=== PATIENT | male | born 1965 | race Caucasian/White ===

== ENCOUNTER → 2017-11-25 | Outpatient (CLI) | payer OTHER ==
--- NOTE | 2017-11-25 14:45 | XR ---
Right knee HISTORY: Trauma and pain 3 views of the right knee Osteoarthritic changes are present, there is marginal spurring and joint space loss is present especi ally in the medial compartment, patellofemoral joint. Suprapatellar increased density compatible join t effusion noted. Speckled calcification in the proximal fibula is present centrally which may repres ent enchondroma. Small ossific density noted at the level of the tibial spines on the frontal view ma y represent sesamoid bone. Bone mineralization is reduced. Alignment is maintained. Serpiginous soft tissue density along the medial lower extremity likely represents varicose vein. Suspect soft tissue swelling. IMPRESSION: No fracture or dislocation is evident. Additional findings above. Knee MRI may be of bene fit.
== END | disposition home or self-care (01) ==
LOC: RADXRMAIN 14:22
PROVIDERS: ATTEND Emergency Medicine
DX: S83.91XA Sprain of unspecified site of right knee, initial encounter (principal)

== ENCOUNTER → 2017-11-29 | Outpatient (CLI) | payer OTHER ==
--- NOTE | 2017-11-29 16:29 | MR ---
EXAMINATION TYPE: MR knee RT wo con DATE OF EXAM: 11/29/2017 COMPARISON: Radiographs 11/25/2017 HISTORY: 52-year-old male sprained of unspecified site of right knee, slip and fall on ice TECHNIQUE: Multiplanar, multisequence imaging of the right knee is performed without IV contrast. FINDINGS: A well-defined T2 hyperintense lesion within the fibular head measures 1.8 cm AP by 2.1 cm craniocaud al by 1.4 cm wide. There is some stippled internal low signal intensity and along with the radiograph ic appearance, a chondroid lesion is suggested. No cortical erosion or extraosseous component. No henna rounding edema. ACL and PCL are intact. The MCL and LCL complex appear intact though there is mild edema of the popliteal musculature attachi ng to the posterior tibia. There is a focal radial tear of the posterior horn of the meniscus and some inner margin fraying of t he meniscal body. [id number] cartilage irregularity within the medial compartment. Degenerative signal in the posterior horn of the lateral meniscus without discrete meniscal tear. Ove rall lateral compartment articular cartilage volume is maintained. Evaluation of the patellofemoral compartment shows a focal high-grade cartilage fissure along the filiberto tral lateral patellar facet, axial image 21. Overall cartilage volume is maintained. There is a moderate to large knee joint effusion and small developing ganglion cysts at the origin of the bilateral gastrocnemius. Extensor mechanism is intact. Superficial varices. There is focal subchondral curvilinear low signal along the posterolateral lip of the lateral tibial plateau measuring 2.1 cm wide and 1.4 cm AP with associated mild bone marrow edema. The overlying car tilage is edematous. There is deep soft tissue edema suggesting extravasation of joint effusion. Normal popliteal artery anatomy and mild diffuse muscular atrophy. No suspicious bone marrow replacem ent. IMPRESSION: 1. Subchondral impaction fracture (2.1 x 1.4 cm) posterolateral lip of the lateral tibial plateau. No significant articular surface depression. The degree of mild bone marrow edema suggests a more subac [place] injury. Clinically correlate. 2. Incomplete radial tear posterior horn medial meniscus with mild to moderate irregular cartilage lo ss throughout the medial compartment. 3. Focal high-grade cartilage fissure along the lateral patellar facet. 4. Mild muscle strain of the popliteus. 5. Moderate to large knee joint effusion. Deep soft tissue edema suggests some extravasation of joint fluid. 6. An incidental 2.1 cm chondroid lesion, likely enchondroma in the fibular head. If the patient ever develops focal bone pain here, the area can be reimaged.
== END | disposition home or self-care (01) ==
LOC: RADMRIMAIN 06:05
PROVIDERS: ATTEND Emergency Medicine
DX: S82.141A Displaced bicondylar fracture of right tibia, initial encounter for closed fracture (principal); S83.241A Other tear of medial meniscus, current injury, right knee, initial encounter; S86.812A Strain of other muscle(s) and tendon(s) at lower leg level, left leg, initial encounter

== ENCOUNTER → 2023-05-13 | Outpatient (CLI) | payer OTHER ==
--- NOTE | 2023-05-13 08:45 | MR ---
EXAMINATION TYPE: MR lumbar spine wo con DATE OF EXAM: 05/13/2023 7:45 AM COMPARISON: None CLINICAL INDICATION: Male, 57 years old with history of M54.59 low back pain; Low back pain that radi ates down right leg TECHNIQUE: Multi planar, multi sequence imaging was performed utilizing: T1-weighted, T2-weighted, a nd turbo inversion recovery imaging of the lumbar spine. IV Contrast: None. FINDINGS: Alignment: The lumbar vertebral bodies have preserved heights grade 1 anterolisthesis of L4 and L5. Cord: The conus medullaris and the distal spinal cord appear unremarkable with regards to their signa l intensity and morphology. Bones/Discs: Low T1 signal lesion within the L4 vertebral body measuring 16 mm and at T5 measuring 18 mm. Degeneration changes throughout the spine with osteophyte formation, anterior Schmorl's node of the a nterior superior endplate of L3. Some high inversion recovery signal within the pedicles of the L4 vertebrae. T12-L1: No evidence of significant spinal canal stenosis or neural foraminal stenosis. L1-L2: No evidence of significant spinal canal stenosis or neural foraminal stenosis. L2-L3: Disc bulge and facet joint arthropathy result in mild spinal canal and moderate bilateral neur al foraminal stenosis. L3-L4: Disc bulge and facet joint arthropathy result in mild spinal canal and moderate bilateral neur al foraminal stenosis. L4-L5: Disc uncovering from grade 1 anterolisthesis and facet joint arthropathy with mild spinal gustavo l stenosis and moderate to severe bilateral neural foraminal stenosis. L5-S1: Right central disc herniation which abuts the forming nerves on the right. There is facet join t arthropathy with moderate to severe neural foraminal stenosis. No significant spinal canal or neura l foraminal stenosis in the remainder of the visualized levels. Other findings: None. IMPRESSION: 1. Indeterminate low T1 signal lesions within the L4 and L5 vertebrae correlate with history of siomara gnancy with other etiologies not excluded. Further workup and clinical correlation advised. 2. Grade 1 anterolisthesis of L4 and L5 with stress reaction of the pedicles with mild bony edema. T his results in moderate to severe bilateral neural foraminal stenosis. 3. Mild to moderate degeneration changes of the spine. 4. L5-S1 Right central disc herniation which abuts the forming nerves on the right.
== END | disposition home or self-care (01) ==
LOC: RADMRIMAIN 07:05
PROVIDERS: ATTEND Orthopaedic Surgery Orthopaedic Surgery of the Spine
DX: M51.16 Intervertebral disc disorders with radiculopathy, lumbar region (principal); M47.26 Other spondylosis with radiculopathy, lumbar region; M48.061 Spinal stenosis, lumbar region without neurogenic claudication; M43.16 Spondylolisthesis, lumbar region
CPT/HCPCS: 72148

== ENCOUNTER → 2023-07-02 | Outpatient (CLI) | payer OTHER ==
--- NOTE | 2023-07-02 14:20 | NM ---
EXAMINATION TYPE: NM bone scan whole body DATE OF EXAM: 07/02/2023 COMPARISON: NONE CLINICAL INDICATION: Male, 57 years old with history of M54.59 OTHER LOW BACK PAIN; Delayed whole-body scanning was performed following the injection of 23.7 mCi Tc 99m MDP. Images acq uired 3 hours post injection. FINDINGS: There is intense abnormal uptake involving the mid anterior rib cage at levels 2 rib segments. There is mild abnormal uptake involving the cervical and thoracic spine likely degenerative. Moderate intensity uptake at L4-L5 correspond to hypertrophic degenerative changes. This obscures the osseous lesion seen by MRI. Abnormal faint uptake involving the knees, feet, ankles, sternoclavicular joints, and shoulders ana tible with post arthritic changes. Abnormal uptake involving the maxilla and mandible suggesting dental disease. IMPRESSION: 1. Intense abnormal uptake involving the mid anterior left rib cage into segments suggest recent frac ture. Recommend dedicated x-ray to exclude other etiologies. 2. Abnormal uptake involving the lateral margins of the L4-L5 levels of moderate intensity. They amol espond to hypertrophic degenerative changes obscures the area of uptake suspected within the osseous lesions. PET scan recommended.
== END | disposition home or self-care (01) ==
LOC: RADNMMAIN 10:07
PROVIDERS: ATTEND Orthopaedic Surgery Orthopaedic Surgery of the Spine
DX: M51.16 Intervertebral disc disorders with radiculopathy, lumbar region (principal); M47.26 Other spondylosis with radiculopathy, lumbar region; M43.16 Spondylolisthesis, lumbar region
CPT/HCPCS: 78306; A9503

== ENCOUNTER → 2023-07-19 | Outpatient (CLI) | payer OTHER ==
--- NOTE | 2023-07-19 16:07 | CT ---
EXAMINATION TYPE: CT ChestAbdPelvis w con DATE OF EXAM: 07/19/2023 COMPARISON: None HISTORY: neoplasm of bone CT DLP: 2723.6 mGycm Automated exposure control for dose reduction was used. CONTRAST: CT scan of the chest, abdomen and pelvis is performed with Oral Contrast and with IV Contrast, patien t injected with 100ml mL of Isovue 300. FINDINGS: CT chest: The lungs are clear of consolidative/airspace or interstitial density. There is no pleural effusion, pleural thickening or pneumothorax. There are no suspicious lung masses or nodules. The great vessels chest are normal and there is no mediastinal, hilar or axillary adenopathy. There are partially healed fractures the anterior fifth and sixth ribs on the left. No focal lesions are seen within the dorsal spine throughout the thoracic region. CT abdomen and pelvis: The gallbladder is normal without distention or gallstones or biliary ductal dilatation. Tiny calcification in the right lobe of liver otherwise is no focal masses within the liver, pancreas , spleen or adrenal glands. There is no organomegaly. There is no solid renal mass or hydronephrosis. There are 2 hyperdense exophytic cyst of the right ki dney largest of which measures approximately 1.5 cm. MRI of the kidneys is recommended for further ev aluation. The bowel loops are normal in caliber is no dilatation or obstruction. No inflammatory changes are id entified in the bowel wall or mesentery. There is no free intraperitoneal air or fluid. There is no pelvic mass or adenopathy allograft abdominal and pelvic soft tissues are normal. There is moderate facet arthropathy at the L4-5 level. There is mild to moderate degenerative disc di sease at the L5-S1 level. No focal osseous lesions are seen within the abdomen or pelvis. IMPRESSION: 1. Partially healed left anterior fifth and sixth rib fractures. 2. No acute cardiopulmonary disease. 3. No acute changes within the abdomen. 4. Mild degenerative changes in the lower lumbar spine as described above. 5. Hyperdense cysts of the right kidney possibly representing hemorrhagic cysts. MRI the kidneys is r ecommended for further evaluation.
== END | disposition home or self-care (01) ==
LOC: RADCTMAIN 13:13
PROVIDERS: ATTEND Internal Medicine Hematology & Oncology
DX: D48.0 Neoplasm of uncertain behavior of bone and articular cartilage (principal); M47.816 Spondylosis without myelopathy or radiculopathy, lumbar region; N28.1 Cyst of kidney, acquired
CPT/HCPCS: 71260; 74177; Q9967

== ENCOUNTER → 2023-09-11 | Outpatient (CLI) | payer OTHER ==
--- NOTE | 2023-09-11 18:08 | US ---
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 Left Kidney: No hydronephrosis or masses seen Bladder: Anechoic Bilateral Jets seen: No There is no evidence for hydronephrosis at this point in time. No nephrolithiasis is seen. No solid masses are identified. Few thin-walled cysts identified within the right kidney with largest measur ing up to 1.5 cm. Cortical medullary differentiation is maintained bilaterally. The urinary bladder i s anechoic. IMPRESSION: 1. No hydronephrosis or nephrolithiasis. 2. Right renal cysts identified with simple appearance corresponding to prior CT likely representing proteinaceous/hemorrhagic cysts.
== END | disposition home or self-care (01) ==
LOC: RADUSWWP 16:21
PROVIDERS: ATTEND Internal Medicine Hematology & Oncology
DX: D48.0 Neoplasm of uncertain behavior of bone and articular cartilage (principal); I48.91 Unspecified atrial fibrillation; N28.1 Cyst of kidney, acquired
CPT/HCPCS: 76770

== ENCOUNTER → 2024-05-19 | Outpatient (CLI) | payer OTHER ==
--- NOTE | 2024-05-19 12:50 | MR ---
EXAMINATION TYPE: MR lumbar spine wo/w con DATE OF EXAM: 05/19/2024 COMPARISON: 06/11/[address] 07/19/2023 HISTORY: 58-year-old male D48.0 Abnormal MRI Technique: Multiplanar, multisequence images of the lumbar spine were obtained before and after admin istration of 13 mL intravenous Gadavist gadolinium contrast. FINDINGS: Hypertrophic facet arthropathy mid to lower lumbar spine with degenerative grade 1 anterolisthesis at L4-L5 redemonstrated. Anterior Schmorl's node involving the superior endplate of L3 which is unchanged. Moderate degenerative disc disease L5-S1 with desiccated, narrowed, and diffusely bulging disc, uncha nged. There is mild degenerative disc disease elsewhere throughout the lumbar spine. Ligamentum flavum thickening mid lumbar spine. Conus medullaris is normal. Vertebral body heights are preserved. Heterogeneous red marrow hyperplasia. Incidental L3 limbus vertebra. Vertebral body heights are prese rved. Redemonstrated hypointense 1.6 cm round lesions, one within the right side of the L5 vertebral body a nd one along the posterior inferior aspect of the L4 vertebral body. These show stable size compared to 05/13/2023. No new lesions are seen. No appreciable enhancement. At L4-L5, the combination of ligamentum flavum thickening, bulging disc, and grade 1 anterolisthesis continues to mild narrowing of the spinal canal along with moderate bilateral neural foraminal stenos is. Otherwise, no large focal disc herniation or other significant spinal canal stenosis seen. At L5-S1, there is diffusely bulging disc with superimposed right paracentral extrusion which displac es the traversing right S1 nerve root posteriorly extending into the right lateral recess. Moderate r ight and mild left neuroforaminal stenosis here. IMPRESSION: 1. A couple round hypointense and nonenhancing lesions redemonstrated measuring up to 1.6 cm located within the L4 and L5 vertebral bodies. These remain unchanged back to 05/13/2023. Correlate with PSA v alues. Ongoing surveillance follow-up may be indicated. Given the stability, a benign etiology is fa vored. 2. Spondylotic change results in grade 1 anterolisthesis at L4-L5 with mild spinal canal stenosis her e. Moderate bilateral neural foraminal stenosis. 3. Moderate degenerative disc disease L5-S1. There is a superimposed right paracentral extrusion here which encroaches onto the right lateral recess possibly impinging the traversing right S1 nerve root . Moderate right and mild left neural foraminal stenosis at this level.
== END | disposition home or self-care (01) ==
LOC: RADMRIMAIN 11:14
PROVIDERS: ATTEND Internal Medicine Hematology & Oncology
DX: D48.0 Neoplasm of uncertain behavior of bone and articular cartilage (principal); M43.16 Spondylolisthesis, lumbar region; M47.816 Spondylosis without myelopathy or radiculopathy, lumbar region; M48.061 Spinal stenosis, lumbar region without neurogenic claudication; M51.26 Other intervertebral disc displacement, lumbar region; M51.37 Other intervertebral disc degeneration, lumbosacral region
CPT/HCPCS: 72158; A9585

== ENCOUNTER → 2024-10-14 | Outpatient (CLI) | payer OTHER ==
[2024-10-14 15:57] LABS: HCT 40.7 % (39.6-50.0); HGB 13.3 g/dL (13.0-17.0); MCH 29.6 pg (27.0-32.0); MCHC 32.7 g/dL (32.0-37.0); MCV 90.4 FL (80.0-97.0); Mean Platelet Volume 10.7 FL (9.5-12.2); NRBC Per 100 WBC 0 X 10*3/uL (0.00-0.01); Platelet Count 239 X 10*3/uL (140-440); RDW 13.1 % (11.5-14.5); WBC 6.12 X 10*3/uL (4.50-10.00)
[2024-10-14 16:16] LABS: ALT 23 U/L (10-49); AST 26 U/L (14-35); Albumin 4.5 g/dL (3.8-4.9); Albumin/Globulin Ratio 2.37 Ratio (1.60-3.17); Alkaline Phosphatase 93 U/L (41-126); BUN/Creat Ratio 20.62 Ratio (12.00-20.00); Blood Urea Nitrogen 16.5 mg/dL (9.0-27.0); Calcium 9.3 mg/dL (8.7-10.3); Carbon Dioxide 25.2 mmol/L (21.6-31.8); Chloride 108 mmol/L (96-109); Chol/HDL Ratio 5.19 Ratio; Globulin 1.9 g/dL (1.6-3.3); Glucose 111 mg/dL (70-110); LDL Cholesterol,Calculated 154.6 mg/dL (0.0-131.0); Potassium 5.1 mmol/L (3.5-5.5); Prostate Specific Antigen 0.38 ng/mL (0.000-3.500); Sodium 143 mmol/L (135-145); Total Bilirubin 0.3 mg/dL (0.3-1.2); Total Protein 6.4 g/dL (6.2-8.2); VLDL Calculation 18.16 mg/dL (5.00-40.00)
[2024-10-14 19:01] LABS: Appearance,Urine Clear (Clear); Bilirubin,Urine Negative (Negative); Blood,Urine Negative (Negative); Color,Urine Yellow (Yellow); Ketones,Urine Negative (Negative); Nitrite,Urine Negative (Negative); Specific Gravity,Urine 1.005 (1.001-1.030); Urobilinogen,Urine 0.2 E.U./DL
== END | disposition home or self-care (01) ==
LOC: LABWHC1 08:56
PROVIDERS: ATTEND Family Medicine
DX: Z00.00 Encounter for general adult medical examination without abnormal findings (principal)
CPT/HCPCS: 36415; 80053; 80061; 81003; 83036; 84153; 84443; 85027

== ENCOUNTER → 2025-04-01 | Outpatient (CLI) | payer OTHER ==
--- NOTE | 2025-04-02 19:08 | MR ---
INDICATION: Patient age:Male; 59 years old; Reason for study: M48.061; [facility]. COMPARISONS: MRI lumbar spine 05/19/2024, 06/11/2023, 05/13/2023, CT chest abdomen pelvis 07/19/2023, nucle ar medicine bone scan 07/02/2023. TECHNIQUE: Multi planar, multi sequence imaging was performed utilizing: T1-weighted, T2-weighted, a nd turbo inversion recovery imaging of the lumbar spine. The patient was not given contrast. FINDINGS: The lumbar vertebral bodies do have preserved heights. Similar grade 1 anterolisthesis of L4 on L5 without pars defects. Diffusely heterogenous bone marrow signal. Similar Schmorl's node invo lving the superior endplate anteriorly of the L3 vertebral body. There are 2 stable T1/T2 hypointense lesions involving the L4 and L5 vertebral bodies. No new lesions appreciated. Multilevel disc desicc ation is present. No abnormal STIR signal identified. Disc height loss most prominent at L5-S1. Anter ior osteophyte at L5-S1. The conus medullaris and the distal spinal cord do appear unremarkable with regards to their signal intensity and morphology. Tiny sacral Tarlov cysts. L1-L2: No significant disc pathology is identified. The spinal canal and neural foramen are patent. L2-L3: Minimal broad-based disc bulge. No significant central canal stenosis. Bilateral facet arthro anderson. No neural foraminal stenosis. L3-L4: No significant disc pathology is identified. The spinal canal and neural foramen are patent. Bilateral facet arthropathy. L4-L5: Grade 1 anterolisthesis with uncovering of the disc. Ligamentum flavum buckling with bilateral facet arthropathy redemonstrated. Mild central canal stenosis. Broad-based disc bulge. Moderate bila teral neural foraminal stenosis. L5-S1: Redemonstration of diffuse disc bulge with superimposed right paracentral disc extrusion whic h displaces the traversing right S1 nerve root posteriorly and extends into the right lateral recess. Minimal central canal stenosis. Moderate right and mild left neural foraminal stenosis redemonstrate d. Other significant findings: None. IMPRESSION: 1. Overall stable examination from prior MR 05/19/2024. There are 2 stable hypodense lesions identifie d within the L4 and L5 vertebral bodies from prior exam. No new suspicious lesions identified. These are both nonspecific but given stability a benign etiology is favored. 2. Similar multilevel moderate degenerative disc disease of the lower lumbar spine as described abov e. There is again L5-S1 paracentral disc extrusion with displacement of the traversing right S1 nerve root. 3. Similar grade 1 anterolisthesis at L4 on L5. [facility], , 04/02/2025 7:06 PM
== END ==
LOC: RADMRIMAIN 04-11 21:15
PROVIDERS: ATTEND Family Medicine
DX: M48.061 Spinal stenosis, lumbar region without neurogenic claudication (principal); M89.9 Disorder of bone, unspecified; M51.369 Other intervertebral disc degeneration, lumbar region without mention of lumbar back pain or lower extremity pain
CPT/HCPCS: 72148